=== PATIENT | female | born 1950 | race Caucasian/White ===

== ENCOUNTER 2018-08-24 09:23 | Outpatient (CLI) | payer MEDICARE ==
--- NOTE | 2018-08-24 12:16 | ULT ---
LIMITED LEFT BREAST ULTRASOUND: DATE: 08/24/2018. PROVIDED CLINICAL HISTORY: Left breast palpable abnormality. FINDINGS: Limited sonographic interrogation was performed of the left breast in the region of palpable concern at the 11 o'clock position. There is an elliptical circumscribed smoothly marginated echogenic focus measuring about 1.9 cm in the region of palpable concern. This likely reflects an area of fat necro sis as demonstrated mammographically. No concerning sonographic findings are evident. IMPRESSION: BI-RADS category 2 - benign findings. POS: [facility]
== END 2018-08-24 09:24 | disposition home or self-care (01) ==
LOC: BICMAMMO 09:23
PROVIDERS: ATTEND Family Medicine
DX: N63.22 Unspecified lump in the left breast, upper inner quadrant (principal); Z85.41 Personal history of malignant neoplasm of cervix uteri; Z80.3 Family history of malignant neoplasm of breast
CPT/HCPCS: 76642; 77066; G0279

== ENCOUNTER 2019-10-06 03:08 | Inpatient (IN) | payer MEDICARE ==
[2019-10-06] MEDS ORDERED: Diltiazem 125 MG/25 ML ONE (03:19)
[2019-10-06 05:58] LABS: Troponin I Less than 0.010 ng/mL (< 0.028)
[2019-10-06 06:12] VITALS: BMI 43.6
[2019-10-06 08:23] LABS: Troponin I 0.013 ng/mL (< 0.028)
[2019-10-06] MEDS ORDERED: Ondansetron ODT 4 MG TAB PO PRN (09:32)
[2019-10-06] MEDS ORDERED: Ondansetron PF 4 MG/2 ML Vial IVP PRN (09:32)
[2019-10-06] MEDS ORDERED: Acetaminophen 325 MG TAB PO PRN (09:32)
[2019-10-06] MEDS ORDERED: Bisacodyl 10 MG SUPP PR PRN (09:32)
[2019-10-06] MEDS ORDERED: Senokot S 8.6-50 MG TAB PO PRN (09:32)
[2019-10-06] MEDS ORDERED: Enoxaparin Sodium 40 MG/0.4 ML SYRINGE SC SCH (09:45)
[2019-10-06 11:02] LABS: Troponin I Less than 0.010 ng/mL (< 0.028)
--- NOTE | 2019-10-06 15:53 | HP ---
PRIMARY CARE PHYSICIAN: Dr. Rui Corral. CHIEF COMPLAINT: Palpitations. HISTORY OF PRESENT ILLNESS: A 69-year-old female with prior history of paroxysmal atrial fibrillation, admitted on transfer from [facility] for evaluation and treatment of atrial fibrillation with rapid ventricular response. The patient reportedly developed acute onset of palpitations, associated with chest discomfort. She was taken to the ER in [place], where she was found to have atrial fibrillation with rapid ventricular response. She was given IV bolus of Cardizem and subsequently started on Cardizem infusion and transferred over here for further evaluation and treatment. Cardizem infusion was continued in the ER and subsequently to the telemetry floor. The patient however developed bradycardia with heart rate dropping down to 30s, hence Cardizem infusion was discontinued. The patient subsequently converted to sinus rhythm, but with significant bradycardia. She has remained asymptomatic. Denied chest pain currently. There is no history of fever, chills, rigor, headache, nausea, vomiting, abdominal pain, change in bowel habits, dysuria, hematuria, leg swelling, dizziness, or focal weakness. The patient had a similar palpitation several years ago and was seen and pacemaker placement was considered, but eventually was not done. PAST MEDICAL HISTORY: 1. Paroxysmal atrial fibrillation. 2. Hypertension. 3. Obesity. 4. Uterine cancer. 5. Pituitary mass. 6. Anxiety. 7. Depression. PAST SURGICAL HISTORY: 1. Appendectomy. 2. Cholecystectomy. 3. Bilateral tubal ligation. 4. Hysterectomy with unilateral salpingo-oophorectomy. FAMILY HISTORY: Reviewed, but noncontributory. SOCIAL HISTORY: The patient lives at home with . Denied tobacco, alcohol, or recreational drug use. ALLERGIES: REPORTS ALLERGIC REACTION TO THE FOLLOWING; 1. AMLODIPINE. 2. FUROSEMIDE. 3. GUANFACINE. 4. HYDROCHLOROTHIAZIDE. 5. LISINOPRIL. 6. METOPROLOL. 7. PENICILLIN. HOME MEDICATIONS: 1. Xanax 0.5 mg t.i.d. p.r.n. for anxiety. 2. Aspirin 81 mg p.o. daily. 3. Cholecalciferol 5000 units p.o. daily. 4. Docusate 100 mg p.o. daily. 5. Lisinopril 20 mg p.o. daily. 6. Multivitamin one tablet p.o. daily. 7. [place]-3 fatty acid 1 capsule p.o. daily. REVIEW OF SYSTEMS: 12-point review of system performed was negative other than pertinent positives and negatives included in the history of present illness. PHYSICAL EXAMINATION: VITAL SIGNS: Temperature 98.2, pulse 50, respiratory rate 16, SpO2 of 97% on room air, blood pressure is 129/59. GENERAL: Elderly female, in no distress. Afebrile. Anicteric. Acyanotic. HEENT: Normocephalic and atraumatic. Oral mucosa is moist. NECK: Supple. Nontender with good range of motion. No masses or lymphadenopathy appreciated. CARDIOVASCULAR: Regular rhythm, but bradycardic. Soft systolic murmur noted. RESPIRATORY: Good air entry bilaterally with no obvious crackle or rhonchi or use of accessory muscles. GI: Obese, soft, nontender, nondistended with normal bowel sounds. EXTREMITIES: Grossly normal looking, atraumatic with no edema or erythema. SKIN: No rash appreciated. 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 Cranial nerves 2 through 12 are grossly intact. DIAGNOSTIC DATA: CBC showed WBC count of 9.5, hemoglobin of 14.1, MCV of 92.7, platelet of 240. CMP showed sodium 142, potassium 4.0, chloride 104, CO2 of 27, BUN 20, creatinine 0.94, glucose 114, calcium 9.6, total bilirubin 0.3, AST 18, ALT 18, alkaline phosphatase 56, total protein 7.4, albumin 4.1, globulin 3.3. TSH is 1.672. Magnesium is 2.1. Serial troponin has been unremarkable. IMAGING STUDIES: Chest x-ray showed no acute cardiopulmonary abnormality. EKG; initial EKG at [facility] showed atrial fibrillation with rapid ventricular response with heart rate of 128. Repeat EKG here in the hospital shows sinus bradycardia with rate in 40s. No obvious ischemic changes were noted. ASSESSMENT: 1. Atrial fibrillation with rapid ventricular response. 2. Tachy-iris syndrome. 3. Hypertension. 4. Morbid obesity. 5. Anxiety and depression. 6. History of uterine cancer. PLAN: 1. Continue to hold Cardizem infusion and monitor vitals. Telemetry to continue. 2. The patient may need pacemaker placement. 3. We will defer to Cardiology. 4. Cardiology consult requested. 5. We will also get echocardiogram. 6. We will rule out acute MD with serial troponin. 7. Further treatment to follow depending on hospital course. 8. Code status: Full code. The patient's spouse and son are the surrogate decision makers. Job ID: [id number]
--- NOTE | 2019-10-06 18:47 | EKG ---
Test Reason : Blood Pressure : / mmHG Vent. Rate : 048 BPM Atrial Rate : 048 BPM P-R Int : 158 ms QRS Dur : 094 ms QT Int : 440 ms P-R-T Axes : 034 031 011 degrees QTc Int : 393 ms Marked sinus bradycardia Abnormal ECG When compared with ECG of 27-JAN-2017 08:37, Vent. rate has decreased BY [address] no longer depressed in Anterior leads Confirmed by WONG MARIE, SLissy (4) on 10/06/2019 6:47:08 PM Referred By: OBI Confirmed By:DR. Courtney BACK MD
--- NOTE | 2019-10-06 18:52 | EKG ---
Test Reason : Blood Pressure : / mmHG Vent. Rate : 102 BPM Atrial Rate : 102 BPM P-R Int : 000 ms QRS Dur : 088 ms QT Int : 334 ms P-R-T Axes : 000 007 -24 degrees QTc Int : 435 ms Atrial fibrillation with rapid ventricular response Nonspecific T wave abnormality , probably digitalis effect Abnormal ECG Confirmed by WONG MARIE, DR. Valdez ([id number]) on 10/06/2019 6:51:39 PM Referred By: Confirmed By:DR. Courtney BACK MD
--- NOTE | 2019-10-06 19:39 | CON ---
DATE OF CONSULTATION: HISTORY OF PRESENT ILLNESS: Juli is a 69-year-old white female, who has been seen and evaluated by Dr. Bradford in the hospital in 2015 and in 2017. She has had chest discomfort, but all of her noninvasive studies have always been negative. She also has a very longstanding history of bradycardia with heart rates in the 40s and 50s, and this is not new. She denies ever having any history of syncope. She also denies any lightheadedness or dizziness, but then her son states that frequently when she stands up, she will state that she is lightheaded. Last night, she was trying to go to sleep and was in bed for approximately 20 minutes when she felt her heart started beating very rapidly. This is a new sensation for her. She denied any chest discomfort or shortness of breath associated with her heart beating rapidly. Her has a pulse oximeter, and she checked her pulse and it would be anywhere from 150 up to 180 or 190. She went to the emergency room in [place] and was found to have atrial fibrillation with rapid ventricular response. She was given Lovenox 120 mg subcutaneously. She was given 10 mg bolus of intravenous diltiazem followed by 5 mg/hour drip. Her heart rate slowed, and she was transferred. She then converted to sinus rhythm and had heart rates in the 30s and 40s, and Cardizem was discontinued. She has had problems with hypertension and admission for that; however, she has not been admitted for atrial fibrillation in the past. PAST MEDICAL HISTORY: Hypertension, obesity, history of uterine cancer, pituitary mass, anxiety, and depression. PAST SURGICAL HISTORY: Appendectomy, cholecystectomy, bilateral tubal ligation , and hysterectomy with removal of 1 ovary. MEDICATIONS: 1. Xanax 0.5 mg t.i.d. p.r.n. 2. Aspirin 81 daily. 3. Vitamin D3 of 5000 units daily. 4. Colace 100 daily. 5. Lisinopril 20 mg daily. 6. Multivitamin daily. 7. [place]-3 one daily. ALLERGIES: 1. AMLODIPINE. 2. FUROSEMIDE. 3. LISINOPRIL. 4. METOPROLOL. 5. PENICILLINS. 6. GUANFACINE. SOCIAL HISTORY: She smoked and drank in the past. REVIEW OF SYSTEMS: A 10-point review of systems is otherwise unremarkable. PHYSICAL EXAMINATION: VITAL SIGNS: Blood pressure 128/69, pulse of 52. HEENT: PERRL. NECK: Supple. CHEST: Clear. CARDIAC: S1 and S2 are normal without any S3, S4, or murmurs. Carotid upstrokes are normal without bruits. ABDOMEN: Obese. Normal bowel sounds. No tenderness or organomegaly. EXTREMITIES: Revealed no clubbing, cyanosis, or edema. NEUROLOGIC: Grossly intact. SKIN: Warm and dry. LABORATORY DATA: EKG revealed atrial fibrillation with fast ventricular response of 128 per minute with nonspecific ST and T-wave changes. Subsequent EKGs revealed marked sinus bradycardia with rate of 48 per minute with no ST-segment changes. CBC is unremarkable. Sodium 142, potassium 4.0, chloride 104, carbon dioxide 27, BUN 20, creatinine 0.94, glucose 114. Troponin I is negative x3. TSH is normal. IMPRESSION: 1. Sick sinus syndrome with episodes of paroxysmal atrial fibrillation as well as years of significant sinus bradycardia. She now has episodes of lightheadedness and dizziness and has had atrial fibrillation with fast ventricular response. 2. Hypertension. 3. Obesity. 4. History of uterine cancer. 5. Anxiety and depression. 6. Pituitary mass. 7. History of chest pain in the past with multiple negative nuclear scans. RECOMMENDATIONS: I feel that Ms. Bustos should be anticoagulated, and she will be started on Lovenox 1gm/kg b.i.d. Echocardiogram will be performed to assess left ventricular function. Any medication to try to further suppress her atrial fibrillation will make her baseline sinus bradycardia even worse. It is recommended that a pacemaker be placed. Risks of pacemaker insertion were discussed with the patient and her son including , infection, bleeding, blood clot formation, pneumothorax, cardiac tamponade, reoperation for lead dislodgement, etc. Once the pacemaker is inserted, then she could be placed on an antiarrhythmic drug and oral anticoagulant. Echocardiogram needs to be performed prior to any device being implanted. She will consider this. We will further discuss over the next day or two. Job ID: [id number] [facility]PITALFei
[2019-10-06] MEDS: Famotidine/PF 20 mg/2ml Vial SLOW IVP SCH (21:06)
[2019-10-06] MEDS: Enoxaparin Sodium 120 MG/0.8 ML SYRINGE SC SCH (21:06)
[2019-10-06] MEDS: Famotidine 20 MG TAB PO SCH (21:06)
[2019-10-07 05:08] LABS: #Basophils 0.1 thou/uL (0.0-0.2); #Eosinphils 0.1 thou/uL (0.0-0.7); #Lymphocytes 2.3 thou/uL (1.20-3.40); #Monocytes 0.7 thou/uL (0.11-0.59); #Neutrophils 3.9 thou/uL (1.40-6.50); %Basophils 0.9 % (0.0-1.0); %Eosinophils 1.2 % (0.0-10.0); %Lymphocytes 32.3 % (21.0-51.0); %Monocytes 10.4 % (0.0-10.0); %Neutrophils 55.2 % (42.0-75.0); Hemoglobin 13.3 g/dL (12.0-16.0); Mean Corpuscular HGB CONC 33.1 g/dL (32.0-36.0); Mean Corpuscular Hemoglobin 30.7 pg (27.0-31.0); Mean Corpuscular Volume 92.7 fL (78.0-98.0); Mean Platelet Volume 7.6 fL (7.4-10.4); Platelet Count 238 thou/uL (130-400); Red Blood Cell (RBC) Count 4.31 mill/uL (4.20-5.40); White Blood Cell (WBC) Count 7.1 thou/uL (4.8-10.8)
[2019-10-07 05:20] LABS: Albumin 3.7 g/dL (3.4-4.8); Anion Gap 11 mmol/L (10-20); BUN (Urea Nitrogen) 20 mg/dL (9.8-20.1); Calc. Creatinine Clearance 115 mL/min (70-130); Carbon Dioxide 30 mmol/L (23-31); Chloride 106 mmol/L (98-107); Estimated GFR-MDRD 68; Glucose 113 mg/dL (80-115); Phosphorus 3.1 mg/dL (2.3-4.7); Potassium 4.6 mmol/L (3.5-5.1); Sodium 142 mmol/L (136-145)
[2019-10-07] MEDS: Enoxaparin Sodium 120 MG/0.8 ML SYRINGE SC SCH (08:47)
[2019-10-07] MEDS: Famotidine 20 MG TAB PO SCH ×2 (08:47→21:14)
[2019-10-07] MEDS: Famotidine/PF 20 mg/2ml Vial SLOW IVP SCH ×2 (08:49→21:18)
[2019-10-07] MEDS ORDERED: Enoxaparin Sodium 40 MG/0.4 ML SYRINGE SC SCH (09:00)
--- NOTE | 2019-10-07 13:05 | PDOC.HOSPP ---
- Subjective Encounter Date: 10/07/19 Encounter Time: 13:03 Subjective: 69 y/o female with paroxysmal atrial fib admitted with palpitation and found to have afib RVR. Treated with cardizem infusion but she developed bradycardia necessitatiing discontinuation of cardizem. no new problem. Palpitation has resolved. - Objective Vital Signs & Weight: Vital Signs (12 hours) Temp Pulse Resp BP Pulse Ox 10/07/19 11:19 98.0 F 44 L 18 137/72 96 10/07/19 08:46 97.8 F 48 L 18 136/77 97 10/07/19 03:30 97.5 F L 45 L 12 143/72 H 95 Weight Weight 254 lb 2 oz I&O: 10/06/19 10/07/19 10/08/19 06:59 06:59 06:59 Intake Total 1320 Balance 1320 Result Diagrams: 10/07/19 04:19 10/07/19 04:19 Hospitalist ROS - Medication Medications: Active Medications Generic Name Dose Route Start Last Admin Trade Name Khoiq PRN Reason Stop Dose Admin Enoxaparin Sodium 120 mg 10/06/19 21:00 10/07/19 08:47 Lovenox SC 120 mg 0900,2100 MAYELIN Administration Famotidine 20 mg 10/06/19 21:00 10/07/19 08:49 Pepcid SLOW IVP Not Given Q12HR MAYELIN Famotidine 20 mg 10/06/19 21:00 10/07/19 08:47 Pepcid PO 20 mg BID MAYELIN Administration - Exam General Appearance: awake alert Eye: anicteric sclera ENT: normocephalic atraumatic Neck: supple, symmetric, no JVD Heart: RRR, murmur present Heart - other findings: bradycardic Respiratory: no wheezes, no rales, no ronchi, normal chest expansion Gastrointestinal: soft, non-tender, non-distended, normal bowel sounds Extremities: no cyanosis, no edema Neurological: cranial nerve grossly intact, no focal deficits Psychiatric: A&O x 3 Hosp A/P (1) Paroxysmal atrial fibrillation with rapid ventricular response Code(s): I48.0 - PAROXYSMAL ATRIAL FIBRILLATION Status: Acute (2) SSS (sick sinus syndrome) Code(s): I49.5 - SICK SINUS SYNDROME Status: Acute (3) Hypertension Code(s): I10 - ESSENTIAL (PRIMARY) HYPERTENSION Status: Chronic - Plan Continue Telemetry Continue to avoid rate control medications as she is still bradycardic Awaiting PPM placement. Cardiology following. Now on anticoagulation for CVA prophylaxis.
[2019-10-07] MEDS: HYDROcodone/Acetaminophen 5/325 mg Tablet PO PRN (21:18)
[2019-10-08] MEDS ORDERED: Sodium Chloride 0.9% 1,000 ML IV SCH (06:00)
[2019-10-08] MEDS ORDERED: Lidocaine 1% (PF) 30 ML VIAL ONE ×4 (07:37→08:50)
[2019-10-08] MEDS ORDERED: CEFAZOLIN 1 GM VIAL ONE (07:37)
[2019-10-08] MEDS ORDERED: Gentamicin 80 MG/2 ML VIAL ONE (07:37)
[2019-10-08] MEDS ORDERED: Clindamycin/D5W 900 mg/50 ml Premix Bag ONE (08:06)
[2019-10-08] MEDS ORDERED: Vancomycin HCl 500 MG VIAL ONE (08:10)
[2019-10-08] MEDS ORDERED: Midazolam HCl 2 mg/2 ml Vial ONE (08:11)
[2019-10-08] MEDS ORDERED: Fentanyl 100 MCG/2 ML VIAL ONE (08:11)
[2019-10-08] MEDS ORDERED: Dronedarone HCl 400 MG TAB PO SCH ×2 (10:15→17:00)
--- NOTE | 2019-10-08 10:28 | RAD ---
Portable chest: HISTORY: Post cardiac device placement COMPARISON: 10/06/2019 FINDINGS: Lung reyna are clear. Heart and mediastinum appear unremarkable. Vascularity is normal. Visualized osseous structures unremarkable. Dual-lead pacemaker device appears adequately positioned into the left subclavian vein. IMPRESSION: No acute finding
[2019-10-08] MEDS: Famotidine 20 MG TAB PO SCH (10:45)
[2019-10-08] MEDS: Famotidine/PF 20 mg/2ml Vial SLOW IVP SCH (10:45)
[2019-10-08] MEDS: HYDROcodone/Acetaminophen 5/325 mg Tablet PO PRN (12:16)
[2019-10-08 15:48] VITALS: BP 137/79; TEMP 98.1
[2019-10-08] MEDS ORDERED: Ciprofloxacin 500 MG TAB PO SCH (20:00)
--- NOTE | 2019-10-08 22:43 | DIS ---
DATE OF ADMISSION: 10/06/2019 DATE OF DISCHARGE: 10/08/2019 PRIMARY CARE DOCTOR: Dr. Rui Corral. DISCHARGE DIAGNOSES: 1. Paroxysmal atrial fibrillation with rapid ventricular response. 2. Sick sinus syndrome. 3. Bradycardia. 4. Hypertension. 5. Obesity. CONSULT: Cardiology. PROCEDURE PERFORMED: Pacemaker placement. HOSPITAL COURSE: A 69-year-old female with known history of paroxysmal atrial fibrillation, admitted with palpitations and found to have atrial fibrillation with rapid ventricular response. The patient was started on Cardizem infusion, but soon developed bradycardia necessitating discontinuation of Cardizem. Blood pressure was persistently on the low side with dips into the 30s. Cardiology consult was obtained, and impression of sick sinus syndrome was made. The patient initially was started on anticoagulation with Lovenox. She later had pacemaker placement. Post-procedure period was uneventful. She remained stable and was subsequently discharged home. PHYSICAL EXAMINATION: VITAL SIGNS: Temperature 98.1, pulse 60, respiratory rate 18, SpO2 of 98% on room air, and blood pressure is 137/79. GENERAL: Obese female, in no obvious distress. Afebrile. Anicteric. Acyanotic. HEENT: Normocephalic, atraumatic. Oral mucosa is moist. CARDIOVASCULAR: Regular rhythm and rate with soft systolic murmur. RESPIRATORY: Good air entry bilaterally with no obvious crackle or rhonchi or use of accessory muscles. GI: Obese, soft, nontender, nondistended with normal bowel sounds. EXTREMITIES: Grossly normal looking, atraumatic with no edema or erythema. 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 DISCHARGE CONDITION: Improved. DISCHARGE DISPOSITION: Home. DISCHARGE MEDICATIONS: 1. Xanax 0.5 mg p.o. t.i.d. p.r.n. 2. Aspirin 81 mg p.o. daily. 3. Cholecalciferol 5000 units p.o. daily. 4. Docusate 100 mg p.o. daily. 5. Lisinopril 20 mg p.o. daily. 6. Multivitamin one capsule p.o. daily. 7. [place]-3 fatty acids one capsule p.o. daily. 8. Acetaminophen 650 mg q.4 p.r.n. for pain. 9. Ciprofloxacin 500 mg p.o. b.i.d. for 7 days. 10. Multaq 400 mg p.o. b.i.d. 11. Metoprolol succinate 50 mg p.o. daily. 12. Xarelto 20 mg p.o. daily to be started on October 13, 2019. 13. Tramadol 50 mg p.o. t.i.d. p.r.n. for moderate pain. TIME SPENT: Discharge took more than 36 minutes. Job ID: [id number]
--- NOTE | 2019-10-09 17:21 | CCL ---
PACEMAKER INSERTION: 10/08/19 INDICATION: Sinus bradycardia with lightheadedness, atrial fibrillation with fast ventricular response. DESCRIPTION OF PROCEDURE: The patient was brought to the Cardiac Pizza Delivery Driver and the left subclavian ar ea was prepped and draped. Patient was given versed 1 mg and fentanyl 25 mg x3 for moderate conscious sedation for approximately 1 hour 45 minutes. 1% Lidocaine was infiltrated. A J-wire was placed int o the left subclavian vein. Using blunt and sharp dissection with electrocautery for hemostasis, the pacemaker pocket was manufactured. There were several large arteries traversing the area which were d ifficult at first to maintain hemostasis. An antibiotic solution soaked 4x4 gauze was placed into th e pocket. A second J-wire was placed into the left subclavian vein. Using peel away sheaths, the atr ial and ventricular leads were inserted. The ventricular lead was advanced into the RV apex and screw ed into place. The right atrial lead was screwed into the right atrium. Right ventricular lead - R-wave 5.9, impedance 927, threshold 0.5 volts. Right atrial lead - P-wave 3.6, impedance 587, threshold 0.8 volts. The tabs were removed from the suture tiedowns and both izzy ds were secured in place with two sutures of 0 silk. The antibiotic solution soaked gauze was removed and the subcutaneous pocket was irrigated with copious amounts of antibiotic solution. The leads we re attached to the pacemaker generator and this was placed into the pocket. This was secured in place with one suture of 0 silk. The incision was then closed using two layers of running 3-0 Vicryl, one layer of running 4-0 Vicryl. Dermabond was placed on the incision. The patient jessica erated the procedure well.
== END 2019-10-08 17:25 | disposition home or self-care (01) | DRG 243 ==
LOC: ERS 03:08 → 2NO 03:09
PROVIDERS: ADMIT Internal Medicine; ATTEND Internal Medicine
PROC: 0JH604Z Insertion of Pacemaker, Single Chamber into Chest Subcutaneous Tissue and Fascia, Open Approach (ICD-10-PCS; principal; 2019-10-08)
PROC: 02H63JZ Insertion of Pacemaker Lead into Right Atrium, Percutaneous Approach (ICD-10-PCS; 2019-10-08)
PROC: 02HK3JZ Insertion of Pacemaker Lead into Right Ventricle, Percutaneous Approach (ICD-10-PCS; 2019-10-08)
DX: I48.0 Paroxysmal atrial fibrillation (principal); Z68.41 Body mass index [BMI] 40.0-44.9, adult; I49.5 Sick sinus syndrome; I10 Essential (primary) hypertension; F41.9 Anxiety disorder, unspecified; E66.01 Morbid (severe) obesity due to excess calories; F32.9 Major depressive disorder, single episode, unspecified; Z90.710 Acquired absence of both cervix and uterus; Z85.42 Personal history of malignant neoplasm of other parts of uterus; Z90.49 Acquired absence of other specified parts of digestive tract; Z98.51 Tubal ligation status; Z88.8 Allergy status to other drugs, medicaments and biological substances; Z88.1 Allergy status to other antibiotic agents
CPT/HCPCS: 33208; 36415; 71045; 80069; 83735; 84443; 85025; 93005; 93010; 93306; 96365; 96366; 99152; 99153; J0690; J1580; J1650; J2001; J2250; J3010; J3370; J3490; S0028

== ENCOUNTER 2019-10-23 10:18 | Emergency (ER) | payer MEDICARE ==
[2019-10-23 11:03] LABS: Bilirubin Negative (Negative); Blood, Urine Large (Negative); Glucose, Urine (Dipstick) Negative (Negative); Leukocyte Trace (Negative); Nitrite Negative (Negative); Protein, Urine (Dipstick) 30 mg/dL (Neg-Trace); Urobilinogen 0.2 mg/dL (Less than 2)
[2019-10-23 11:05] LABS: Clarity Cloudy (Clear)
[2019-10-23 11:07] LABS: RBC/HPF Greater than 50 HPF (0-3)
[2019-10-23] MEDS ORDERED: Iopamidol-370 76% 500 ML 1 ML ONE (11:07)
[2019-10-23 11:08] LABS: Bacteria/HPF None Seen HPF (None Seen); Squamous Epithelial 0-3 HPF (0-3)
[2019-10-23 11:27] LABS: #Basophils 0.1 thou/uL (0.0-0.2); #Eosinphils 0.2 thou/uL (0.0-0.7); #Lymphocytes 1.6 thou/uL (1.20-3.40); #Monocytes 0.8 thou/uL (0.11-0.59); #Neutrophils 5.1 thou/uL (1.40-6.50); %Basophils 0.8 % (0.0-1.0); %Eosinophils 2.7 % (0.0-10.0); %Lymphocytes 21.1 % (21.0-51.0); %Monocytes 10.4 % (0.0-10.0); Hemoglobin 13.5 g/dL (12.0-16.0); Mean Corpuscular HGB CONC 33.6 g/dL (32.0-36.0); Mean Corpuscular Hemoglobin 30.9 pg (27.0-31.0); Mean Corpuscular Volume 92.1 fL (78.0-98.0); Mean Platelet Volume 6.7 fL (7.4-10.4); Platelet Count 295 thou/uL (130-400); RBC Distribution Width 11.9 % (11.5-14.5); Red Blood Cell (RBC) Count 4.36 mill/uL (4.20-5.40); White Blood Cell (WBC) Count 7.8 thou/uL (4.8-10.8)
[2019-10-23 11:36] LABS: INR-International Normal Ratio 1.4; Prothrombin Time 17.2 SEC (12.0-14.7)
[2019-10-23 11:37] LABS: PTT 37.9 SEC (22.9-36.1)
--- NOTE | 2019-10-23 12:30 | RAD ---
EXAM: Chest 2 views: HISTORY: Recent pacemaker placement patient on anticoagulants, blood in urine COMPARISON: 10/08/2019 FINDINGS: Left ICD. Heart size:Within normal limits. Lungs:Clear of acute process. Atherosclerotic changes of the aorta. No confluent pneumonia, overt edema, pleural effusion, pneumothorax, or other significant acute proce ss. IMPRESSION: Atherosclerosis of the aorta. No acute intrathoracic disease.
[2019-10-23 15:51] LABS: ALT (SGPT) 12 U/L (8-55); AST (SGOT) 13 U/L (5-34); Albumin 3.8 g/dL (3.4-4.8); Alkaline Phosphatase 60 U/L (40-110); Anion Gap 10 mmol/L (10-20); BUN (Urea Nitrogen) 15 mg/dL (9.8-20.1); Bilirubin, Total 0.5 mg/dL (0.2-1.2); Calc. Creatinine Clearance 0 mL/min (70-130); Calcium 9.1 mg/dL (7.8-10.44); Carbon Dioxide 31 mmol/L (23-31); Chloride 105 mmol/L (98-107); Estimated GFR-MDRD 65; Globulin 2.7 g/dL (2.4-3.5); Glucose 98 mg/dL (80-115); Potassium 4.6 mmol/L (3.5-5.1); Protein, Total 6.5 g/dL (6.0-8.3); Sodium 141 mmol/L (136-145)
--- NOTE | 2019-10-23 16:53 | CT ---
CT OF THE ABDOMEN AND PELVIS WITH IV CONTRAST INDICATION: Hematuria COMPARISON: CTA aortic dissection protocol dated July 21, 2016 FINDINGS: ABDOMEN: Lung bases: There is a stable 1.1 cm pulmonary nodule in the right lower lobe. Liver: There is a stable peripherally enhancing 3.1 cm mass within the posterior aspect of the right hepatic lobe when compared to the prior CTA examination the abdomen and pelvis is most consistent with a hemangioma. No additional focal hepatic lesion is evident. Gallbladder: Not visualized Pancreas: Normal. Adrenal glands: Normal. Spleen: Normal. Kidneys and ureters: There is a stable 1.7 cm fat density mass involving the inferior pole left kidne y consistent with a small renal angiomyolipoma. Additional small cyst is seen involving the lower pole of the left kidney. No hydronephrosis is demonstrated. No gross ureteral calculus is noted. Vasculature: There are mild vascular calcifications seen involving the visualized vasculature. Lymph nodes:No lymphadenopathy. Free fluid in abdomen:No free fluid is evident. PELVIS: Small and large bowel: There is a mild amount of retained stool within the colon. No active inflammat ory change is grossly evident. Appendix:Not definitely seen. Bladder: Normal. Rectal and perirectal soft tissues:Normal. Reproductive structures: Not seen, presumed to be surgically absent Free fluid in pelvis: No free fluid is evident. Lymphadenopathy pelvis: No lymphadenopathy is evident. Osseous structures: Diffuse osteopenia. There has been an interval mild wedge compression fracture of L1. This was present on a CT of the lumbar spine dated April 20, 2017. There is scattered degenerative and osteoarthritic changes. Soft tissues:Normal. IMPRESSION: 1. No ureteral calculus or hydronephrosis demonstrated. Visualized bladder was normal appearing. Stab le left renal angiomyolipoma and left renal cysts. 2. Stable right hepatic lobe hemangioma. 3. Stable right lower lobe pulmonary nodule. This has been stable since 2016 and is considered benign . 4. Interval remote mild L1 compression fracture.
== END 2019-10-23 17:15 | disposition home or self-care (01) ==
LOC: ERS 10:18
DX: R31.9 Hematuria, unspecified (principal); I49.9 Cardiac arrhythmia, unspecified; I48.91 Unspecified atrial fibrillation; I10 Essential (primary) hypertension; F32.9 Major depressive disorder, single episode, unspecified; F41.9 Anxiety disorder, unspecified; Z79.899 Other long term (current) drug therapy
CPT/HCPCS: 36415; 71046; 74177; 80053; 81003; 81015; 85025; 85610; 85730; 93005; Q9967

== ENCOUNTER 2019-11-01 01:10 | Emergency (ER) | payer MEDICARE ==
[2019-11-01 02:00] LABS: Bacteria/HPF None Seen HPF (None Seen); Bilirubin Negative (Negative); Blood, Urine 3+ (Negative); Clarity Clear (Clear); Glucose, Urine (Dipstick) Normal (Negative); Leukocyte 250 Leu/uL (Negative); Nitrite Negative (Negative); Protein, Urine (Dipstick) Negative (Neg-Trace); RBC/HPF Greater than 50 HPF (0-3); Squamous Epithelial 0-3 HPF (0-3); Urobilinogen Normal mg/dL (Less than 2)
[2019-11-01 02:28] LABS: #Basophils 0.1 thou/uL (0.0-0.2); #Eosinphils 0.3 thou/uL (0.0-0.7); #Lymphocytes 2.3 thou/uL (1.20-3.40); #Monocytes 0.9 thou/uL (0.11-0.59); #Neutrophils 4.4 thou/uL (1.40-6.50); %Eosinophils 3.3 % (0.0-10.0); %Lymphocytes 28.8 % (21.0-51.0); %Monocytes 11.8 % (0.0-10.0); %Neutrophils 55.2 % (42.0-75.0); Hemoglobin 12.4 g/dL (12.0-16.0); Mean Corpuscular HGB CONC 33.7 g/dL (32.0-36.0); Mean Corpuscular Volume 91.9 fL (78.0-98.0); Mean Platelet Volume 6.8 fL (7.4-10.4); Platelet Count 259 thou/uL (130-400); RBC Distribution Width 11.9 % (11.5-14.5); Red Blood Cell (RBC) Count 4.02 mill/uL (4.20-5.40); White Blood Cell (WBC) Count 7.9 thou/uL (4.8-10.8)
[2019-11-01 02:56] LABS: CKMB 0.4 ng/mL (0-6.6)
--- NOTE | 2019-11-01 08:42 | RAD ---
PORTABLE CHEST: Date: 11/01/19 INDICATION: Chest pain. COMPARISON: 10/08/19. FINDINGS: Lungs show no evidence of infiltrate. Heart size upper normal and stable. Dual lead pacemaker again n oted. Vascular markings normal. IMPRESSION: No acute findings. POS: [facility]
--- NOTE | 2019-11-02 14:07 | EKG ---
Test Reason : Blood Pressure : / mmHG Vent. Rate : 069 BPM Atrial Rate : 069 BPM P-R Int : 208 ms QRS Dur : 090 ms QT Int : 376 ms P-R-T Axes : 130 000 -10 degrees QTc Int : 402 ms Atrial-paced rhythm Minimal voltage criteria for LVH, may be normal variant Cannot rule out Anterior infarct , age undetermined Abnormal ECG Confirmed by IMKEY CONWAY ([id number]), newspaper editor JULIANO CASTRO ([id number]) on 11/02/2019 2:07:38 PM Referred By: Confirmed By:MIKEY CONWAY
== END 2019-11-01 03:28 | disposition home or self-care (01) ==
LOC: ERS 01:10
DX: R10.13 Epigastric pain (principal); R31.9 Hematuria, unspecified; I48.91 Unspecified atrial fibrillation; F32.9 Major depressive disorder, single episode, unspecified; F41.9 Anxiety disorder, unspecified; Z79.01 Long term (current) use of anticoagulants; Z79.899 Other long term (current) drug therapy
CPT/HCPCS: 36415; 71045; 81003; 81015; 82550; 82553; 84484; 85025; 87086; 93005

== ENCOUNTER 2019-11-17 00:52 | Emergency (ER) | payer MEDICARE ==
[2019-11-17 01:34] LABS: #Basophils 0.1 thou/uL (0.0-0.2); #Eosinphils 0.2 thou/uL (0.0-0.7); #Lymphocytes 2.6 thou/uL (1.20-3.40); %Eosinophils 2.3 % (0.0-10.0); %Lymphocytes 29.4 % (21.0-51.0); %Monocytes 11.4 % (0.0-10.0); Hemoglobin 13.3 g/dL (12.0-16.0); Mean Corpuscular HGB CONC 32.7 g/dL (32.0-36.0); Mean Corpuscular Hemoglobin 30.2 pg (27.0-31.0); Mean Corpuscular Volume 92.6 fL (78.0-98.0); Platelet Count 278 thou/uL (130-400)
[2019-11-17 01:55] LABS: ALT (SGPT) 14 U/L (8-55); AST (SGOT) 14 U/L (5-34); Albumin 3.9 g/dL (3.4-4.8); Alkaline Phosphatase 61 U/L (40-110); Anion Gap 11 mmol/L (10-20); BUN (Urea Nitrogen) 20 mg/dL (9.8-20.1); Bilirubin, Total 0.2 mg/dL (0.2-1.2); Calc. Creatinine Clearance 0 mL/min (70-130); Calcium 9.2 mg/dL (7.8-10.44); Carbon Dioxide 28 mmol/L (23-31); Chloride 104 mmol/L (98-107); Estimated GFR-MDRD 53; Globulin 3.4 g/dL (2.4-3.5); Glucose 98 mg/dL (80-115); Potassium 4.4 mmol/L (3.5-5.1); Protein, Total 7.3 g/dL (6.0-8.3); Sodium 139 mmol/L (136-145)
[2019-11-17] MEDS ORDERED: cloNIDine 0.1 MG TAB ONE (02:04)
--- NOTE | 2019-11-17 07:42 | RAD ---
Exam: Chest one view HISTORY:Night sweats, x2 days Comparison: 11/01/2019 FINDINGS: Cardiac silhouette: Normal Aorta: Elongation of the aorta is redemonstrated. Pacemaker: Stable left-sided transvenous pacemaker. Pulmonary vessels: Normal Costophrenic angles: Clear LUNGS: No masses or consolidation. Pneumothorax: None Osseous abnormalities: None IMPRESSION: No acute cardiopulmonary process.
== END 2019-11-17 02:26 | disposition home or self-care (01) ==
LOC: ERS 00:52
DX: R00.2 Palpitations (principal); I10 Essential (primary) hypertension; F41.9 Anxiety disorder, unspecified; F32.9 Major depressive disorder, single episode, unspecified; I48.91 Unspecified atrial fibrillation; Z79.01 Long term (current) use of anticoagulants
CPT/HCPCS: 36415; 71045; 80053; 83880; 84484; 85025; 93005